=== PATIENT | male | born 1980 | race Hispanic/Latino ===

== ENCOUNTER 2022-03-06 08:59 | Emergency (ER) | payer OTHER ==
[~2022-03-06 08:59] MED LIST: CEPH500B PO; HYDR-2132 PO; NAPR-1023 PO
[2022-03-06] MEDS ORDERED: KETOROLAC 60 MG VIAL (30MG/ML) IM ONE (09:30)
[2022-03-06 11:14] VITALS: BP 143/98
[2022-03-06] MEDS ORDERED: IBUP-1493 PO (11:25)
[2022-03-06] MEDS ORDERED: METH-662 PO (11:25)
== END 2022-03-06 11:37 | disposition home or self-care (01) ==
LOC: EDH 08:59
DX: M54.2 Cervicalgia (principal); M54.9 Dorsalgia, unspecified; V49.49XA Driver injured in collision with other motor vehicles in traffic accident, initial encounter; Y93.89 Activity, other specified; Y92.413 State road as the place of occurrence of the external cause; Y99.8 Other external cause status
CPT/HCPCS: 99284; 72125; 72100; 72070; 96372; J1885